=== PATIENT | female | born 1985 | race Caucasian/White ===

== ENCOUNTER 2016-10-07 10:49 | Emergency (ER) | payer MEDICAID ==
[~2016-10-07] VITALS: Ht 152.4 cm; Wt 72.6 kg
[~2016-10-07 10:49] MED LIST: ATIVAN1 MG PO; CYTOTEC200 MC1 PO; FOLATE1 MG PO; OYSTER SHELL C500 MG PO; PRENATAL VITAMI1 T10 PO
[2016-10-07 11:20] VITALS: BP 105/74
--- NOTE | 2016-10-07 12:33 | NUR ---
PATIENT AMBULATED TO BED 7 AT THIS TIME.
--- NOTE | 2016-10-07 12:53 | NUR ---
31/F TO ED WITH C/O LEFT BREAST PAIN X1 WEEK. PT STATES SHE FEELS A SHARP PAIN IN HER LEFT BREAST/CHEST /. DENIES SOB. PT STATES PAIN DOES NOT RADIATE. LUNGS CLEAR BILAT. HR EVEN AND REGULAR. AAOX4. VSS. NO SIGNS OF DISTRESS
[2016-10-07] MEDS ORDERED: KETOROLAC 60 MG/2 ML VIAL IM ONE (13:40)
[2016-10-07 14:02] VITALS: BP 105/74
--- NOTE | 2016-10-07 14:02 | NUR ---
Patient discharged with v/s stable. Written and verbal after care instructions given and explained. Patient alert, oriented and verbalized understanding of instructions. Ambulatory with steady gait. All questions addressed prior to discharge. ID band removed. Patient advised to follow up with PMD. Rx of PREDNISONE AND MOTRIN given. Patient educated on indication of medication including possible reaction and side effects. Opportunity to ask questions provided and answered.
== END 2016-10-07 14:02 | disposition home or self-care (01) ==
LOC: MED 10:49
DX: R07.89 Other chest pain (principal); R05 Cough; R00.2 Palpitations; J02.9 Acute pharyngitis, unspecified
CPT/HCPCS: 81002; 93005; 96372; 99283; J1885

== ENCOUNTER 2017-06-05 13:37 | Emergency (ER) | payer MEDICAID ==
[~2017-06-05] VITALS: Ht 154.9 cm; Wt 75.4 kg
[2017-06-05 13:40] VITALS: BP 120/70
--- NOTE | 2017-06-05 15:11 | NUR ---
Patient ambulated to bed 04.
--- NOTE | 2017-06-05 15:15 | NUR ---
32 F BIB WITH C/O 9/10 "PRESSURE" NON RADIATING POSTERIOR HEAD PAIN X 2 DAYS PT DENIES ANY RECENT INJURY/TRAUMA TO HEAD OR BODY; PT DENIES N/V, DIZZINESS, OR CHANGES IN VISION; NO FACIAL ASYMMETRY NOTED, PT TALKING WITH CLEAR SPEECH AND FULL COHERENT SETENCES; PT IS AOX4 WITH STEADY GAIT; RR ARE EVEN AND UNLABORED; VSS; PATIENT POSITIONED FOR COMFORT; HOB ELEVATED; BED DOWN. ER MD MADE AWARE OF PT STATUS. WILL CONTINUE TO MONITOR
[2017-06-05] MEDS ORDERED: METOCLOPRAMIDE 10 MG TAB PO ONE (16:00)
[2017-06-05] MEDS ORDERED: KETOROLAC 60 MG/2 ML VIAL IM ONE (16:00)
[2017-06-05] MEDS ORDERED: IBUPROFEN 800 MG TAB PO ONE (16:15)
[2017-06-05 17:35] VITALS: BP 104/70
--- NOTE | 2017-06-05 17:35 | NUR ---
Patient discharged with v/s stable. Written and verbal after care instructions given and explained. Patient alert, oriented and verbalized understanding of instructions. Ambulatory with steady gait. All questions addressed prior to discharge. ID band removed. Patient advised to follow up with PMD. Rx of Ibuprofen and Reglan given. Patient educated on indication of medication including possible reaction and side effects. Opportunity to ask questions provided and answered.
== END 2017-06-05 17:35 | disposition home or self-care (01) ==
LOC: MED 13:37
DX: G44.209 Tension-type headache, unspecified, not intractable (principal); E05.90 Thyrotoxicosis, unspecified without thyrotoxic crisis or storm
CPT/HCPCS: 81003; 99283; J1885; J8597

== ENCOUNTER 2017-11-17 10:22 | Emergency (ER) | payer MEDICAID ==
[~2017-11-17] VITALS: Ht 162.6 cm; Wt 72.6 kg
[~2017-11-17 10:22] MED LIST changes: -ATIVAN1 MG PO; +CALC500C50 PO; -CYTOTEC200 MC1 PO; -FOLATE1 MG PO; +FOLI1TAB19 PO; +LORA-476 PO; -OYSTER SHELL C500 MG PO; +PREN-385 PO; -PRENATAL VITAMI1 T10 PO; +[UNRECOGNIZED DRUG - CODE] PO
[2017-11-17 10:37] VITALS: BP 109/64
--- NOTE | 2017-11-17 11:08 | NUR ---
PT AMBULATED TO BED 1.
--- NOTE | 2017-11-17 11:15 | NUR ---
32 YO F BIB SELF W/ C/O URINARY RETENTION, INTERNAL VAGINAL ITCHING, ABD PAIN, FLANK PAIN, AND SUPRAPUBIC PAIN. PT REPORTS PAIN 7/10, SHARP AND NON-RADIATING. POSITION CHANGES INTENSIFY THE PAIN. REPORTS IT ALL STARTED Friday11/15/17 IN THE MORNING. PT JUST RECENTLY FINISHED AMOXICILLIN REGIMEN ON 11/15/17 FOR EAR INFECTION. LMP 11/03/17. NO MED HX. NKDA. A&O X 4. GCS 15. NO S/S OF ACUTE DISTRESS. ER MD LUTHER MADE AWARE OF PT CONDITION. PT NEEDS MET AT THIS TIME. WILL CONTINUE TO MONITOR.
[2017-11-17] MEDS: KETOROLAC 60 MG/2 ML VIAL IM ONE (11:59)
[2017-11-17 12:19] VITALS: BP 102/73
--- NOTE | 2017-11-17 12:19 | NUR ---
Patient discharged with v/s stable. Written and verbal after care instructions given and explained. Patient alert, oriented and verbalized understanding of instructions. Ambulatory with steady gait. All questions addressed prior to discharge. ID band removed. Patient advised to follow up with PMD. Rx of DIFLUCAN 150MG TAB, CIPRO 500MG TAB AND MOTRIN 800MG TAB given. Patient educated on indication of medication including possible reaction and side effects. Opportunity to ask questions provided and answered.
== END 2017-11-17 12:19 | disposition home or self-care (01) ==
LOC: MED 10:22
DX: B37.49 Other urogenital candidiasis (principal)
CPT/HCPCS: 96372; 99283; J1885; 81002; 81025

== ENCOUNTER 2018-06-07 09:25 | Emergency (ER) | payer SELFPAY ==
[~2018-06-07] VITALS: Ht 152.4 cm; Wt 72.6 kg
[2018-06-07 09:31] VITALS: BP 104/55
--- NOTE | 2018-06-07 09:34 | NUR ---
PT AMBULATES W/ STEADY GAIT TO BED 6 AT THIS TIME ACCOMPANIED BY DAUGHTER. CUP FOR URINE SUPPLIED.
--- NOTE | 2018-06-07 09:38 | NUR ---
33 YO F BIB SELF W/ C/O DIZZINESS X 2 WEEKS. WITH A SPINNING SENSATION WHEN ROTATING HEAD SIDE TO SIDE. PT REPORTS SHE HAS NOT BEEN ABLE TO EAT, REPORTS NAUSEA, DENIES VOMITING. DENIES DIARRHEA OR VOMITING . REPORTS "PINCHING" IN HER RIGHT ARM. AAOX4, GCS 15, CMS INTACT. RR EVEN AND UNLABORED. NO OTHER SYMPTOMS. ABD SOFT, NON-TENDER. LS CLEAR THROUGHOUT, ABD SOFT NON TENDER. WILL CONTINUE TO MONITOR. ER MD MADE AWARE. HX HYPERTHYROIDISM
--- NOTE | 2018-06-07 09:41 | NUR ---
DR TSAI AT BEDSIDE FOR PT EVALUATION
[2018-06-07 10:07] LABS: APPEARANCE,URINE CLEAR (CLEAR); BILIRUBIN,URINE NEGATIVE (NEGATIVE); BLOOD, URINE NEGATIVE (NEGATIVE); COLOR,URINE YELLOW (YELLOW); LEUKOCYTE ESTERASE ,URINE 1+ (NEGATIVE); NITRITE, URINE NEGATIVE (NEGATIVE); PH,URINE 6.5 (5.0-9.0); UGLUCOSE NEGATIVE (NEGATIVE)
[2018-06-07] MEDS ORDERED: MECLIZINE 25 MG TAB PO ONE (10:10)
[2018-06-07] MEDS ORDERED: KETOROLAC 60 MG/2 ML VIAL IM ONE (10:10)
[2018-06-07] MEDS ORDERED: ONDANSETRON 4 MG ODT PO ONE (10:10)
[2018-06-07] MEDS ORDERED: FAMOTIDINE 20 MG TAB PO ONE (10:10)
[2018-06-07 10:13] LABS: BARBITURATE, URINE NEG. ng/ml (NEG <=200); BENZODIAZEPINE, URINE NEG. ng/mL (NEG <=200); CANNABINOID, URINE NEG. ng/mL (NEG <=50); COCAINE, URINE NEG. ng/mL (NEG <=300); OPIATE, URINE NEG. ng/mL (NEG <=2000); PHENCYCLIDINE SCREEN,URINE NEG. ng/mL (NEG <=25)
[2018-06-07 10:15] LABS: RBC,URINE NONE SEEN /HPF (0-5)
[2018-06-07 10:47] VITALS: BP 108/59
== END 2018-06-07 10:47 | disposition home or self-care (01) ==
LOC: MED 09:25
DX: R42 Dizziness and giddiness (principal); L29.9 Pruritus, unspecified; R11.0 Nausea; E07.9 Disorder of thyroid, unspecified; Z79.899 Other long term (current) drug therapy
CPT/HCPCS: 80305; 81001; 81025; 87086; 99284; J8597; S0119; J1885

== ENCOUNTER 2018-12-02 21:36 | Emergency (ER) | payer MEDICAID ==
[~2018-12-02] VITALS: Ht 152.4 cm; Wt 77.1 kg
[2018-12-02 21:55] VITALS: BP 111/73
--- NOTE | 2018-12-02 22:03 | NUR ---
PT AMBULATED TO BED 1.
--- NOTE | 2018-12-02 22:20 | NUR ---
33/F PRESENTS TO ED, C/O RASH X3 HRS. RED RAISED RASH DIFFUSELY SCATTERED IN MODERATE AMOUNT THROUGHOUT BACK AND CHEST/ABD, MINIMAL AMOUNT NOTED ON BUE. PT REPORTS ITCHING, DENIES PAIN. REPORTS EATING PORK RIBS AT 1800, STARTED NOTICING S/S AT [id number]. PT AOX4, GCS 15, SPO2 100%, RR 16 EVEN AND UNLABORED. LUNG SOUNDS CLEAR BL. DENIES SOB OR THROAT TIGHTENING
[2018-12-03] MEDS ORDERED: EPINEPHrine 1:1000 - 1 MG/ML AMP SUBQ ONE (00:05)
[2018-12-03] MEDS ORDERED: methylPREDNISolone SS 125 MG/2 ML VIAL IVP ONE (00:05)
[2018-12-03] MEDS ORDERED: diphenhydrAMINE 50 MG/ML VIAL IVP ONE (00:05)
--- NOTE | 2018-12-03 02:13 | NUR ---
DR FARLEY AT BEDSIDE
--- NOTE | 2018-12-03 02:13 | NUR ---
PT LAYING IN BED, REPORTS SLEEPINESS FROM BENADRYL, DENIES ITCHING. NOTICABLE IMPROVEMENT IN PT RASH. PT TO BE DRIVEN BY .
[2018-12-03 02:29] VITALS: BP 101/57
--- NOTE | 2018-12-03 02:29 | NUR ---
Patient discharged with v/s stable. Written and verbal after care instructions given and explained by Dr. Jerry. Patient alert, oriented and verbalized understanding of instructions. Ambulatory with steady gait. All questions addressed prior to discharge by Dr. Jerry. ID band removed by Dr. Jerry. Patient advised to follow up with PMD by Dr. Jerry. Rx of FATOU given by Dr. Jerry. Patient educated on indication of medication including possible reaction and side effects by Dr. Jerry. Opportunity to ask questions provided and answered by Dr. Jerry.
== END 2018-12-03 02:29 | disposition home or self-care (01) ==
LOC: MED 21:36
DX: L50.9 Urticaria, unspecified (principal); Z79.899 Other long term (current) drug therapy
CPT/HCPCS: 96372; 96374; 96375; 99283; J0171; J1200; J2930

== ENCOUNTER 2018-12-03 20:14 | Emergency (ER) | payer MEDICAID ==
[~2018-12-03] VITALS: Ht 152.4 cm; Wt 77.1 kg
[2018-12-03 20:25] VITALS: BP 107/74
--- NOTE | 2018-12-03 20:40 | NUR ---
PT AMBULATED TO [facility] WITH SISTER
--- NOTE | 2018-12-03 20:42 | NUR ---
REPORTS FEELING SWOLLEN THROAT, X1 HR. SPO2 100% ON RA, RR 18. WAS SEEN HERE IN ER YESTERDAY FOR ALLERGIC REACTION. DENIES CP/SOB/FEVERS/CHILLS. RESPIRATIONS EVEN/UNLABORED LUNG SOUNDS CLEAR BILAT THROUGHOUT. RED FLAST RASH NOTED ON ARMS, STOMACH AND BACK. DENIES MED HX OR RX. OTC BENADRYL 25 MINS AGO
[2018-12-03 21:35] VITALS: BP 110/75
--- NOTE | 2018-12-03 21:35 | NUR ---
Patient discharged with v/s stable. Written and verbal after care instructions given and explained. Patient alert, oriented and verbalized understanding of instructions. Ambulatory with steady gait. All questions addressed prior to discharge. ID band removed. Patient advised to follow up with PMD. Rx of epipen and prednisone given. Patient educated on indication of medication including possible reaction and side effects. Opportunity to ask questions provided and answered.
== END 2018-12-03 21:35 | disposition home or self-care (01) ==
LOC: MED 20:14
DX: T78.40XA Allergy, unspecified, initial encounter (principal); Z79.899 Other long term (current) drug therapy; X58.XXXA Exposure to other specified factors, initial encounter
CPT/HCPCS: 99283

== ENCOUNTER 2019-02-14 20:02 | Emergency (ER) | payer MEDICAID ==
[~2019-02-14] VITALS: Ht 152.4 cm; Wt 79.4 kg
[2019-02-14 20:04] VITALS: BP 136/70
--- NOTE | 2019-02-14 20:07 | NUR ---
TO LOBBY A/W BED. AMBULATORY
--- NOTE | 2019-02-14 20:07 | NUR ---
34 Y/O FEMALE PRESENTS TO ED WITH C/O VAGINAL BLEEDING AND CLOTTING X3 DAYS. NO N/V. MILD ABD CRAMPING 2/10. POSITIONED IN BED WITH VSS. ER MD AWARE. CONTINUE TO MONITOR.
--- NOTE | 2019-02-14 20:35 | NUR ---
PATIENT AMBULATED TO ER BED 5.
--- NOTE | 2019-02-14 20:59 | NUR ---
Dr. Arrieta examing patient.
[2019-02-14] MEDS ORDERED: NACL 0.9% 1,000 ML IV ONE (21:10)
[2019-02-14 21:17] LABS: BASOPHILS % (AUTO) 0.5 % (0.0-2.0); EOSINOPHILS # (AUTO) 0.1 K/uL (0-0.4); EOSINOPHILS % (AUTO) 1.6 % (0.0-4.0); HEMATOCRIT 44.4 % (36-48); HEMOGLOBIN 14.7 g/dL (12.0-16.0); LYMPHOCYTES # (AUTO) 1.8 K/uL (2.5-16.5); LYMPHOCYTES % (AUTO) 33.3 % (20.5-51.1); MEAN CORPUSCULAR HEMOGLOBIN 28 pg (27-31); MEAN CORPUSCULAR HGB CONC 33 g/dL (33-37); MONOCYTES # (AUTO) 0.3 K/uL (0.8-1.0); MONOCYTES % (AUTO) 4.9 % (1.7-9.3); NEUTROPHILS # (AUTO) 3.3 K/uL (1.8-7.7); NEUTROPHILS % (AUTO) 59.7 % (42.2-75.2); PLATELET COUNT (AUTO) 270 K/uL (140-450); RED BLOOD CELL COUNT(AUTO) 5.22 MIL/uL (4.20-5.40); RED CELL DISTRIBUTION WIDTH 13.4 % (11.6-13.7); WHITE BLOOD COUNT (AUTO) 5.5 K/uL (4.8-10.8)
[2019-02-14 21:33] LABS: ANION GAP 11.5 (8-16); CARBON DIOXIDE 27.2 mmol/L (21-32); CREATININE 0.9 mg/dL (0.6-1.3); POTASSIUM 3.7 mmol/L (3.5-5.1)
[2019-02-14 21:38] LABS: ALBUMIN 4.2 g/dL (3.4-5.0); TOTAL BILIRUBIN 0.8 mg/dL (0.0-1.0)
[2019-02-14 21:41] LABS: PROTHROMBIN TIME 9.3 secs (10.8-13.4)
[2019-02-14 23:05] VITALS: BP 136/70
--- NOTE | 2019-02-14 23:05 | NUR ---
DISCHARGE PAPERS GIVEN TO PT. VAGINAL SPOTTING STOPPED. NO C/O PAIN. VSS. INSTRUCTED TO F/U WITH PCP AND WHEN TO RETURN TO ER. PT VERBALLIZED UNDERSTANDING OF DC INSTRUCTIONS. ALL QUESTIONS ANSWERED.
== END 2019-02-14 23:05 | disposition home or self-care (01) ==
LOC: MED 20:02
DX: N93.9 Abnormal uterine and vaginal bleeding, unspecified (principal); E34.9 Endocrine disorder, unspecified; R79.1 Abnormal coagulation profile; Z79.899 Other long term (current) drug therapy
CPT/HCPCS: 36415; 76856; 80053; 85025; 85610; 85730; 96360; 99284; J7030; Q0092

== ENCOUNTER 2019-05-22 13:15 | Emergency (ER) | payer MEDICAID ==
[~2019-05-22] VITALS: Ht 152.4 cm; Wt 80.0 kg
[2019-05-22 13:29] VITALS: BP 107/71
--- NOTE | 2019-05-22 13:40 | NUR ---
URINE CUP HANDED TO PT FOR SAMPLE
--- NOTE | 2019-05-22 13:43 | NUR ---
PATIENT AMBULATED TO BED 5.
--- NOTE | 2019-05-22 14:26 | NUR ---
Patient being evaluated by DR BROWN at bedside.
--- NOTE | 2019-05-22 14:50 | NUR ---
34F C/O 06/10 LEFT PELVIC PAIN RADIATING LEFT FLANK X 3 DAYS. WORSE TODAY. AGGRAVATED BY AMBULATION/MOVEMENT. WENT TO PCP WHO DID NOT DO IMAGING, TOLD PT TO GO TO ER IF PAIN WORSENED. LEFT PELVIC REGION TENDER TO PALPATION. NORMOACTIVE BS. NO N/V/FEVER, DYSURIA. STATES TO FREQUENCY AND URGENCY. HX---LEFT OVARIAN CYST/MASS, ANXIETY RX----ORGANIC ANTI-ANXIETY DROPS
--- NOTE | 2019-05-22 14:52 | NUR ---
COAT CHECKER AT BEDSIDE
[2019-05-22 15:19] LABS: BASOPHILS # (AUTO) 0.1 K/uL (0.00-0.22); BASOPHILS % (AUTO) 1.5 % (0.0-2.0); EOSINOPHILS # (AUTO) 0.1 K/uL (0-0.4); EOSINOPHILS % (AUTO) 1.8 % (0.0-4.0); HEMATOCRIT 45.6 % (36-48); LYMPHOCYTES % (AUTO) 37.2 % (20.5-51.1); MEAN CORPUSCULAR HEMOGLOBIN 28 pg (27-31); MEAN CORPUSCULAR HGB CONC 33 g/dL (33-37); MEAN CORPUSCULAR VOLUME 86.5 fL (80-94); MONOCYTES # (AUTO) 0.4 K/uL (0.8-1.0); MONOCYTES % (AUTO) 6.6 % (1.7-9.3); NEUTROPHILS # (AUTO) 2.8 K/uL (1.8-7.7); NEUTROPHILS % (AUTO) 52.9 % (42.2-75.2); PLATELET COUNT (AUTO) 277 K/uL (140-450); RED BLOOD CELL COUNT(AUTO) 5.27 MIL/uL (4.20-5.40); RED CELL DISTRIBUTION WIDTH 13.7 % (11.6-13.7); WHITE BLOOD COUNT (AUTO) 5.3 K/uL (4.8-10.8)
--- NOTE | 2019-05-22 15:22 | NUR ---
CT AWARE CONSENT SIGNED AND 20G RT AC IV PLACED.
[2019-05-22 15:31] LABS: ANION GAP 8.8 (8-16); CARBON DIOXIDE 29.7 mmol/L (21-32); CREATININE 0.8 mg/dL (0.6-1.3); POTASSIUM 3.5 mmol/L (3.5-5.1)
[2019-05-22 15:37] LABS: ALBUMIN 4.2 g/dL (3.4-5.0); TOTAL BILIRUBIN 1.1 mg/dL (0.0-1.0)
--- NOTE | 2019-05-22 15:54 | NUR ---
ADVANCED RESEARCH PROGRAMS DIRECTOR HERE TO TAKE PATIENT FOR SCAN.
--- NOTE | 2019-05-22 16:13 | NUR ---
PT BACK FROM CT.
--- NOTE | 2019-05-22 17:23 | NUR ---
PT RESTING IN BED WITH DAUGHTER. NAD.
--- NOTE | 2019-05-22 18:05 | NUR ---
Patient discharged with v/s stable. Written and verbal after care instructions given and explained. Patient verbalized understanding. Ambulatory with steady gait. All questions addressed prior to discharge. Advised to follow up with PMD.
[2019-05-22 18:09] VITALS: BP 115/58
== END 2019-05-22 18:05 | disposition home or self-care (01) ==
LOC: MED 13:15
DX: R19.04 Left lower quadrant abdominal swelling, mass and lump (principal); Z79.899 Other long term (current) drug therapy
CPT/HCPCS: 36415; 74177; 80053; 81002; 81025; 85025; 99284; Q9967

== ENCOUNTER 2021-10-15 11:40 | Emergency (ER) | payer MEDICAID ==
[~2021-10-15] VITALS: Ht 165.1 cm; Wt 88.0 kg
[~2021-10-15 11:40] MED LIST changes: +MISO200T2 PO; -[UNRECOGNIZED DRUG - CODE] PO
[2021-10-15 11:45] VITALS: BP 111/66
[2021-10-15] MEDS ORDERED: IBUPROFEN 800 MG TAB PO ONE (11:55)
--- NOTE | 2021-10-15 12:01 | NUR ---
36/F C/O NOSE SWELLING X1 WEEK, DENIES RECENT INJURY OR TRAUMA, PATIENT ALSO C/O LOWER ABDOMINAL PAIN X5 DAYS, STATES HX OF FIBROIDS AND BELIEVES THE PAIN IS RELATED. DENIES N/V/D, DYSURIA OR CP.
[2021-10-15] MEDS ORDERED: FLONAS NS (13:29)
[2021-10-15] MEDS ORDERED: NAPR-54 PO (13:29)
[2021-10-15] MEDS ORDERED: NITR100C7 PO (13:48)
--- NOTE | 2021-10-15 13:52 | NUR ---
Patient discharged with v/s stable. Written and verbal after care instructions ABOUT PELVIC PAIN AND ALLERGIC RHINITIS given and explained. Patient alert, oriented and verbalized understanding of instructions. Ambulatory with steady gait. All questions addressed prior to discharge. ID band removed. Patient advised to follow up with PMD. Rx of FLONASE, NAPROXEN, MACROBID given. Patient educated on indication of medication including possible reaction and side effects. Opportunity to ask questions provided and answered.
[2021-10-15 16:52] LABS: APPEARANCE,URINE CLEAR (CLEAR); BILIRUBIN,URINE NEGATIVE (NEGATIVE); BLOOD, URINE NEGATIVE (NEGATIVE); COLOR,URINE YELLOW (YELLOW); LEUKOCYTE ESTERASE ,URINE TRACE (NEGATIVE); NITRITE, URINE POSITIVE (NEGATIVE); UGLUCOSE NEGATIVE (NEGATIVE)
[2021-10-15 17:02] LABS: RBC,URINE NONE SEEN /HPF (0-5); WBC,URINE 0-5 /HPF (0-5)
== END 2021-10-15 13:52 | disposition home or self-care (01) ==
LOC: MED 11:40
DX: J34.89 Other specified disorders of nose and nasal sinuses (principal); R10.2 Pelvic and perineal pain; Z79.899 Other long term (current) drug therapy
CPT/HCPCS: 70160; 76830; 81001; 81025; 99285; Q0092

== ENCOUNTER 2022-02-07 17:19 | Emergency (ER) | payer MEDICAID ==
[~2022-02-07] VITALS: Ht 152.9 cm; Wt 87.2 kg
[~2022-02-07 17:19] MED LIST changes: +FLONAS NS; +NAPR-54 PO; +NITR100C7 PO
[2022-02-07 17:41] VITALS: BP 117/73
--- NOTE | 2022-02-07 17:46 | NUR ---
JAMES. HANDED ON URINE CUP.
--- NOTE | 2022-02-07 18:43 | NUR ---
PT IN GOWN
[2022-02-07] MEDS ORDERED: ONDANSETRON 4 MG ODT PO ONE (18:45)
[2022-02-07] MEDS ORDERED: ACETAMINOPHEN EXTRA STRENGTH 500 MG TAB PO ONE (18:45)
[2022-02-07] MEDS ORDERED: DICYCLOMINE HCL LIQUID 20 MG, ALUMINUM HYD/MAG/SIMETHICONE 30 ML, LIDOCAINE VISCOUS 2% ... PO ONE ×3 (18:45)
[2022-02-07] MEDS ORDERED: DICYCLOMINE HCL LIQUID 10 MG/5 ML UDC ONE (18:47)
[2022-02-07] MEDS ORDERED: ALUMINUM HYD/MAG/SIMETHICONE 30 ML UDC ONE (18:47)
--- NOTE | 2022-02-07 18:48 | NUR ---
Lab at bedside
[2022-02-07 19:07] LABS: BASOPHILS % (AUTO) 0.5 % (0.0-2.0); EOSINOPHILS # (AUTO) 0.1 K/uL (0-0.4); EOSINOPHILS % (AUTO) 1.1 % (0.0-4.0); HEMATOCRIT 40.8 % (36-48); HEMOGLOBIN 13.7 g/dL (12.0-16.0); LYMPHOCYTES % (AUTO) 33.6 % (20.5-51.1); MEAN CORPUSCULAR HEMOGLOBIN 29 pg (27-31); MEAN CORPUSCULAR HGB CONC 34 g/dL (33-37); MEAN CORPUSCULAR VOLUME 84.9 fL (80-94); MONOCYTES # (AUTO) 0.4 K/uL (0.8-1.0); MONOCYTES % (AUTO) 6.1 % (1.7-9.3); NEUTROPHILS # (AUTO) 3.5 K/uL (1.8-7.7); NEUTROPHILS % (AUTO) 58.7 % (42.2-75.2); PLATELET COUNT (AUTO) 233 K/uL (140-450); RED CELL DISTRIBUTION WIDTH 13.5 % (11.6-13.7)
--- NOTE | 2022-02-07 19:08 | NUR ---
REPORT GIVEN TO CHERELLE SUMMERS
[2022-02-07 19:22] LABS: ALBUMIN 3.9 g/dL (3.4-5.0); ANION GAP 8.3 (8-16); CARBON DIOXIDE 28.4 mmol/L (21-32); CREATININE 0.9 mg/dL (0.6-1.3); POTASSIUM 3.7 mmol/L (3.5-5.1); TOTAL BILIRUBIN 1.6 mg/dL (0.0-1.0)
--- NOTE | 2022-02-07 19:42 | NUR ---
Abimael garcia in ED - 02/07/22 at 2007 by MNANDREJN AT BEDSIDE PERFORMING PROCEDURE
--- NOTE | 2022-02-07 20:08 | NUR ---
2000- CHECKED ON PT STATES SHE STILL HAS PAIN. WILL LET ERMD KNOW
[2022-02-07] MEDS ORDERED: ONDA-188 PO (21:07)
[2022-02-07] MEDS ORDERED: FAMO-90 PO (21:07)
[2022-02-07] MEDS ORDERED: MAG355OR2 PO (21:07)
[2022-02-07 21:30] VITALS: BP 116/85
--- NOTE | 2022-02-07 21:30 | NUR ---
Patient discharged with v/s stable. Written and verbal after care instructions given and explained. Patient alert, oriented and verbalized understanding of instructions. Ambulatory with steady gait. All questions addressed prior to discharge. ID band removed. Patient advised to follow up with PMD. Rx of ZOFRAN,MAALOX, PEPCID given. Opportunity to ask questions provided and answered.
--- NOTE | 2022-02-07 21:33 | NUR ---
Chart checked and completed.
== END 2022-02-07 21:30 | disposition home or self-care (01) ==
LOC: MED 17:19
DX: K29.70 Gastritis, unspecified, without bleeding (principal); K76.0 Fatty (change of) liver, not elsewhere classified; Z79.899 Other long term (current) drug therapy
CPT/HCPCS: 36415; 80053; 81002; 81025; 83690; 85025; 99284; Q0162

== ENCOUNTER 2022-03-06 16:48 | Emergency (ER) | payer MEDICAID ==
[~2022-03-06] VITALS: Ht 152.4 cm; Wt 77.1 kg
[~2022-03-06 16:48] MED LIST changes: +FAMO-90 PO; +MAG355OR2 PO; +ONDA-188 PO
[2022-03-06 17:13] VITALS: BP 136/75
[2022-03-06] MEDS ORDERED: NAPR-1704 PO (18:46)
[2022-03-06] MEDS ORDERED: IBUPROFEN 600 MG TAB ONE (19:16)
[2022-03-06] MEDS: IBUPROFEN 600 MG TAB PO ONE (19:19)
[2022-03-06 19:30] VITALS: BP 136/75
== END 2022-03-06 19:30 | disposition home or self-care (01) ==
LOC: MED 16:48
DX: S83.92XA Sprain of unspecified site of left knee, initial encounter (principal); S76.012A Strain of muscle, fascia and tendon of left hip, initial encounter; Z79.899 Other long term (current) drug therapy; Z79.1 Long term (current) use of non-steroidal anti-inflammatories (NSAID); Z79.2 Long term (current) use of antibiotics; W01.0XXA Fall on same level from slipping, tripping and stumbling without subsequent striking against object, initial encounter; Y93.E5 Activity, floor mopping and cleaning; Y92.009 Unspecified place in unspecified non-institutional (private) residence as the place of occurrence of the external cause; Y99.8 Other external cause status
CPT/HCPCS: 29505; 73502; 73562; 99284

== ENCOUNTER 2022-05-18 00:45 | Emergency (ER) | payer MEDICAID ==
[~2022-05-18] VITALS: Ht 157.5 cm; Wt 77.1 kg
[~2022-05-18 00:45] MED LIST changes: +NAPR-1704 PO
[2022-05-18 00:57] VITALS: BP 107/50
--- NOTE | 2022-05-18 01:03 | NUR ---
TO LOBBY FOLLOWING TRIAGE
[2022-05-18] MEDS ORDERED: diphenhydrAMINE 50 MG CAP PO ONE (02:20)
[2022-05-18] MEDS ORDERED: PRED20TA5 PO (02:47)
[2022-05-18] MEDS ORDERED: BEN50 PO (02:48)
--- NOTE | 2022-05-18 03:38 | NUR ---
Patient discharged with v/s stable. Written and verbal after care instructions given and explained. Patient alert, oriented and verbalized understanding of instructions. Ambulatory with steady gait. All questions addressed prior to discharge. ID band removed. Patient advised to follow up with PMD. Rx of BENADRYL,DELTASONE given. Patient educated on indication of medication including possible reaction and side effects. Opportunity to ask questions provided and answered.
[2022-05-18 03:39] VITALS: BP 100/58
== END 2022-05-18 03:39 | disposition home or self-care (01) ==
LOC: MED 00:45
DX: T78.3XXA Angioneurotic edema, initial encounter (principal)
CPT/HCPCS: 99283; Q0163

== ENCOUNTER 2022-05-26 12:09 | Emergency (ER) | payer MEDICAID ==
[~2022-05-26] VITALS: Ht 160 cm; Wt 84.8 kg
[~2022-05-26 12:09] MED LIST changes: +BEN50 PO; +PRED20TA5 PO
[2022-05-26 12:23] VITALS: BP 112/68
[2022-05-26] MEDS ORDERED: HYDR-1093 PO (13:23)
[2022-05-26] MEDS ORDERED: PRED20TA5 PO (13:23)
[2022-05-26] MEDS ORDERED: TRIA0.029 TP (13:24)
[2022-05-26] MEDS ORDERED: diphenhydrAMINE 50 MG/ML VIAL IM ONE (13:25)
--- NOTE | 2022-05-26 14:22 | NUR ---
RECEIVED CALL FROM ER ADMITTING THAT PT LEFT. PATIENT LEFT WITHOUT BEING SEEN BY DR. PETERS. NO FURTHER CARE PROVIDED FOR PATIENT. RX AT [facility], PREDNISONE, AND TRIAMCINOLONE ACETONIDE SENT TO PATIENTS PHARMACY
== END 2022-05-26 14:22 | disposition left against medical advice (07) ==
LOC: MED 12:09
DX: L50.9 Urticaria, unspecified (principal); Z53.21 Procedure and treatment not carried out due to patient leaving prior to being seen by health care provider
CPT/HCPCS: J1200